=== PATIENT | male | born 1940 | race Caucasian/White ===

== ENCOUNTER 2017-08-04 10:08 | Inpatient (IN) | payer BC, OTHER ==
[~2017-08-04] VITALS: Ht 175.3 cm; Wt 68.0 kg
[2017-08-04 10:24] VITALS: BP_SYST 155
[2017-08-04] MEDS ORDERED: NACL 0.9% 1,000 ML IV ONE (10:41)
[2017-08-04] MEDS ORDERED: CLINDAMYCIN 900 mg/50mL D5W 50 ML IV ONE (10:45)
[2017-08-04] MEDS ORDERED: ASPIRIN 81 MG TAB.CHEW PO ONE (10:45)
[2017-08-04] MEDS ORDERED: NS 1000 ML BAG IV ONE ×2 (10:45→21:00)
[2017-08-04 11:01] LABS: BASOPHILS # (AUTO) 0.1 K/uL (0.0-0.2); MONOCYTES # (AUTO) 0.8 K/uL (0.0-1.0); MONOCYTES % (AUTO) 2.7 % (1.7-9.3)
[2017-08-04 11:08] LABS: BASOPHILS % (AUTO) 0.5 % (0.0-2.0); HEMATOCRIT 31.1 % (36-54); HEMOGLOBIN 10.2 g/dL (14.0-18.0); LYMPHOCYTES # (AUTO) 0.9 K/uL (1.0-5.5); MEAN CORPUSCULAR HEMOGLOBIN 29 pg (27-31); MEAN CORPUSCULAR HGB CONC 33 % (32-36); MEAN CORPUSCULAR VOLUME 88 fL (79.0-98.0); NEUTROPHILS # (AUTO) 27.6 K/uL (1.8-7.7); NEUTROPHILS % (AUTO) 93.8 % (40.0-70.0); PLATELET COUNT (AUTO) 796 K/uL (130-430); RED BLOOD CELL COUNT(AUTO) 3.52 MIL/uL (4.2-6.2); WHITE BLOOD COUNT (AUTO) 29.4 K/uL (4.8-10.8)
[2017-08-04 11:41] LABS: INR 2.4 (0.80-1.20); PROTHROMBIN TIME 24.9 SECS (9.5-12.5)
[2017-08-04 11:48] LABS: ANION GAP 11 (5-15); CALCIUM 9.4 mg/dL (8.4-11.0); CHLORIDE 109 mmol/L (98-107); CREATININE 1.66 mg/dL (0.55-1.30); GLUCOSE 125 mg/dL (70-99); POTASSIUM 4.3 mmol/L (3.5-5.1); SODIUM SERUM 146 mmol/L (136-145); UREA NITROGEN, BLOOD 55 mg/dL (8-21)
[2017-08-04 11:52] LABS: ALANINE AMINOTRANSFERASE 23 U/L (12-78); ALBUMIN 2.1 g/dL (3.4-4.8); AMYLASE 37 U/L (0-100); ASPARTATE AMINOTRANSFERASE 51 U/L (10-37); LIPASE 159 U/L (73-393); TOTAL BILIRUBIN 0.3 mg/dL (0.0-1.0)
[2017-08-04 11:55] LABS: ALCOHOL, BLOOD < 3 mg/dL (<10)
[2017-08-04 12:25] LABS: CREATINE KINASE MB 8.4 ng/mL (0-3.6)
[2017-08-04] MEDS ORDERED: ASPIRIN 81 MG TAB.CHEW ONE (14:11)
[2017-08-04 14:25] VITALS: BP_SYST 159
[2017-08-04 14:25] LABS: BILIRUBIN,URINE NEGATIVE (NEGATIVE); CLARITY/URINE CLEAR (CLEAR); COLOR,URINE YELLOW (YELLOW); GLUCOSE,URINE NEGATIVE (NEGATIVE); KETONES,URINE NEGATIVE (NEGATIVE); LEUKOCYTE ESTERASE ,URINE NEGATIVE (NEGATIVE); NITRITE, URINE NEGATIVE (NEGATIVE); PROTEIN URINE TRACE (NEGATIVE); UROBILINOGEN,URINE 0.2 (0.2-1.0)
[2017-08-04 14:29] LABS: BLOOD, URINE TRACE (NEGATIVE)
[2017-08-04] MEDS ORDERED: cloNIDine HCL 0.1 MG TABLET PO PRN (14:30)
[2017-08-04] MEDS ORDERED: ACETAMINOPHEN 325 MG TABLET PO PRN (14:30)
[2017-08-04] MEDS ORDERED: hydrALAZINE HCL 20 MG/ML VIAL IVP PRN (14:30)
[2017-08-04] MEDS ORDERED: ONDANSETRON HCL 4 MG/2 ML VIAL IVP PRN (14:30)
[2017-08-04] MEDS: VANCOMYCIN HCL 1,000 MG in NS 250 ML IV SCH (15:00)
[2017-08-04 15:04] LABS: BACTERIA,URINE RARE /HPF (None Seen); RBC,URINE 0-3 /HPF (0-3); WBC,URINE 0-3 /HPF (0-3)
[2017-08-04 15:05] LABS: BARBITURATE, URINE NEGATIVE (NEG <=200); BENZODIAZEPINE, URINE NEGATIVE (NEG <=150); CANNABINOID, URINE NEGATIVE (NEG <=50); COCAINE, URINE NEGATIVE (NEG <=150); METHAMPHETAMINES SCREEN,URINE NEGATIVE (NEG <=500); PHENCYCLIDINE SCREEN,URINE NEGATIVE (NEG <=25); UR TRICYCLIC ANTIDEPRESSANTS NEGATIVE (NEG <=300); URINE AMPHETAMINE NEGATIVE (NEG <=500); URINE METHADONE NEGATIVE (NEG <=200); URINE OXYCODONE SCREEN NEGATIVE (NEG <=100); URINE PROPOXYPHENE SCREEN NEGATIVE (NEG <=300)
[2017-08-04 15:06] LABS: OPIATE, URINE POSITIVE (NEG <=100)
[2017-08-04 16:00] VITALS: BP_SYST 159
[2017-08-04] MEDS ORDERED: fentaNYL CITRATE/PF 100 MCG/2 ML AMP IVP ONE ×2 (16:06→21:00)
[2017-08-04] MEDS ORDERED: NS IRRIG SOLN 1000 ML IR ONE ×2 (16:06→21:00)
[2017-08-04] MEDS ORDERED: MIDAZOLAM HCL 5 MG/5 ML VIAL IVP ONE ×2 (16:06→21:00)
[2017-08-04] MEDS ORDERED: MEPERIDINE HCL/PF 100 MG/ML AMP IM ONE (16:06)
[2017-08-04] MEDS ORDERED: KETOROLAC TROMETHAMINE 30 MG VIAL IVP ONE (16:06)
[2017-08-04] MEDS ORDERED: LR 1,000 ML IV.SOLN IV ONE (16:06)
[2017-08-04] MEDS ORDERED: DEXAMETHASONE SOD PHOSPHATE 4 MG/ML VIAL IVP ONE (16:06)
[2017-08-04] MEDS ORDERED: LIDOCAINE 1% 10 MG/ML, 20 ML MDV INJ ONE (16:06)
[2017-08-04] MEDS ORDERED: SEVOFLURANE 15 MIN GAS INH ONE ×2 (16:06→21:00)
[2017-08-04] MEDS ORDERED: PROPOFOL 200MG/ 20ML VIAL (DIPRIVAN) IV ONE ×2 (16:06→21:00)
[2017-08-04] MEDS ORDERED: ONDANSETRON HCL 4 MG/2 ML VIAL IVP ONE (16:06)
[2017-08-04] MEDS: PIPERACILLIN/TAZO 3.375/DEX-IS 50 ML IV SCH ×2 (17:40→17:41)
[2017-08-04] MEDS: BANANA BAG 1 EA, FOLIC ACID 1 MG, THIAMINE HCL 100 MG, MAGNESIUM SULFATE 1 GM, MVI 10 M... IV SCH ×5 (17:41)
[2017-08-04 20:00] VITALS: BP_SYST 111
[2017-08-05 00:21] VITALS: BP_SYST 153
[2017-08-05] MEDS: PIPERACILLIN/TAZO 3.375/DEX-IS 50 ML IV SCH ×4 (00:28→19:02)
[2017-08-05] MEDS: MORPHINE 4 MG/ML INJ. SYRINGE IVP PRN ×2 (00:29→16:05)
[2017-08-05 08:00] VITALS: BP_SYST 155
[2017-08-05 10:25] LABS: RED CELL DISTRIBUTION WIDTH 15.3 % (9.0-15.0)
[2017-08-05 10:28] LABS: HEMATOCRIT 26.4 % (36-54); HEMOGLOBIN 8.6 g/dL (14.0-18.0); MEAN CORPUSCULAR HEMOGLOBIN 29 pg (27-31); MEAN CORPUSCULAR HGB CONC 32 % (32-36); MEAN CORPUSCULAR VOLUME 89 fL (79.0-98.0); RED BLOOD CELL COUNT(AUTO) 2.98 MIL/uL (4.2-6.2); WHITE BLOOD COUNT (AUTO) 22.8 K/uL (4.8-10.8)
[2017-08-05 11:22] LABS: PLATELET COUNT (AUTO) 599 K/uL (130-430)
[2017-08-05 11:26] LABS: BASOPHILS % (MANUAL) 0 % (0-2); EOSINOPHILS % (MANUAL) 1 % (0-7); LYMPHOCYTES % (MANUAL) 4 % (20-46); MONOCYTES % (MANUAL) 8 % (0-11); WBC MORPHOLOGY HYPERSEGMENTED NEUT
[2017-08-05 12:05] VITALS: BP_SYST 148
[2017-08-05] MEDS ORDERED: PHYTONADIONE 10 MG/ML AMP IM ONE (12:15)
[2017-08-05 16:00] VITALS: BP_SYST 144
[2017-08-05] MEDS: VANCOMYCIN HCL 1,000 MG in NS 250 ML IV SCH (16:04)
[2017-08-05] MEDS ORDERED: *CUBICIN 6 MG/KG Q48H/PHARMACY XX PRN (17:00)
[2017-08-05] MEDS: BANANA BAG 1 EA, FOLIC ACID 1 MG, THIAMINE HCL 100 MG, MAGNESIUM SULFATE 1 GM, MVI 10 M... IV SCH ×5 (18:59)
[2017-08-05 20:00] VITALS: BP_SYST 131
[2017-08-05] MEDS ORDERED: DAPTOmycin 400 MG in NS 50 ML IV SCH (20:00)
[2017-08-05] MEDS: LORazepam 2 MG/ML VIAL IVP PRN (22:09)
[2017-08-05 23:12] VITALS: BP_SYST 153
[2017-08-06] VITALS: BP_SYST 153
[2017-08-06] MEDS: PIPERACILLIN/TAZO 3.375/DEX-IS 50 ML IV SCH ×2 (00:35→05:37)
[2017-08-06 08:30] VITALS: BP_SYST 130
[2017-08-06] MEDS: BALSAM PERU/CASTOR OIL 60 GM OINT...G. TP SCH (09:00)
[2017-08-06] MEDS: DAPTOmycin 400 MG in NS 50 ML IV SCH (10:33)
[2017-08-06 10:37] LABS: INR 1.1 (0.80-1.20); PROTHROMBIN TIME 11.2 SECS (9.5-12.5)
[2017-08-06 11:29] VITALS: BP_SYST 144
[2017-08-06 11:42] LABS: BASOPHILS % (AUTO) 0.2 % (0.0-2.0); EOSINOPHILS % (AUTO) 0.2 % (0.0-4.0); LYMPHOCYTES # (AUTO) 0.9 K/uL (1.0-5.5); LYMPHOCYTES % (AUTO) 5.6 % (20.5-51.5); MEAN CORPUSCULAR HEMOGLOBIN 28 pg (27-31); MEAN CORPUSCULAR HGB CONC 32 % (32-36); MEAN CORPUSCULAR VOLUME 88 fL (79.0-98.0); MONOCYTES # (AUTO) 0.9 K/uL (0.0-1.0); MONOCYTES % (AUTO) 5.2 % (1.7-9.3); NEUTROPHILS # (AUTO) 14.7 K/uL (1.8-7.7); NEUTROPHILS % (AUTO) 88.8 % (40.0-70.0); RED BLOOD CELL COUNT(AUTO) 2.44 MIL/uL (4.2-6.2); RED CELL DISTRIBUTION WIDTH 14.9 % (9.0-15.0); WHITE BLOOD COUNT (AUTO) 16.5 K/uL (4.8-10.8)
[2017-08-06 11:44] LABS: HEMOGLOBIN 6.9 g/dL (14.0-18.0)
[2017-08-06 11:45] LABS: HEMATOCRIT 21.5 % (36-54)
[2017-08-06 12:37] LABS: ERYTHROCYTE SEDIMENTATION RATE 71 MM/HR (0-15)
[2017-08-06 15:19] LABS: PLATELET COUNT (AUTO) 535 K/uL (130-430)
[2017-08-06 15:46] VITALS: BP_SYST 148
[2017-08-06] MEDS: BANANA BAG 1 EA, FOLIC ACID 1 MG, THIAMINE HCL 100 MG, MAGNESIUM SULFATE 1 GM, MVI 10 M... IV SCH ×5 (17:45)
[2017-08-06 20:19] VITALS: BP_SYST 113
[2017-08-06] MEDS ORDERED: POLYMYXIN 500,000/BACIT.10,000 UNITS in NS IRR 1 L IR ONE (21:43)
[2017-08-06] MEDS ORDERED: fentaNYL CITRATE/PF 100 MCG/2 ML AMP IVP PRN ×2 (21:45)
[2017-08-06] MEDS ORDERED: ONDANSETRON HCL 4 MG/2 ML VIAL IVP PRN (21:45)
[2017-08-06 21:47] VITALS: BP_SYST 113
[2017-08-07] MEDS: MORPHINE 4 MG/ML INJ. SYRINGE IVP PRN ×4 (05:41→22:32)
[2017-08-07 06:04] LABS: BASOPHILS % (AUTO) 0.3 % (0.0-2.0); EOSINOPHILS % (AUTO) 0.3 % (0.0-4.0); HEMATOCRIT 22.3 % (36-54); HEMOGLOBIN 7.4 g/dL (14.0-18.0); LYMPHOCYTES % (AUTO) 7.2 % (20.5-51.5); MEAN CORPUSCULAR HEMOGLOBIN 29 pg (27-31); MEAN CORPUSCULAR HGB CONC 33 % (32-36); MEAN CORPUSCULAR VOLUME 87 fL (79.0-98.0); MONOCYTES # (AUTO) 0.8 K/uL (0.0-1.0); MONOCYTES % (AUTO) 5.6 % (1.7-9.3); NEUTROPHILS # (AUTO) 11.9 K/uL (1.8-7.7); NEUTROPHILS % (AUTO) 86.6 % (40.0-70.0); PLATELET COUNT (AUTO) 520 K/uL (130-430); RED BLOOD CELL COUNT(AUTO) 2.58 MIL/uL (4.2-6.2); WHITE BLOOD COUNT (AUTO) 13.7 K/uL (4.8-10.8)
[2017-08-07 08:20] VITALS: BP_SYST 143
[2017-08-07] MEDS: ENOXAPARIN SODIUM 40 MG/0.4 ML SYRINGE SUBCUT SCH (09:34)
[2017-08-07 09:48] VITALS: BP_SYST 147
[2017-08-07 09:49] LABS: ANION GAP 9 (5-15); CALCIUM 8.3 mg/dL (8.4-11.0); CHLORIDE 108 mmol/L (98-107); CREATININE 1.22 mg/dL (0.55-1.30); GLUCOSE 128 mg/dL (70-99); POTASSIUM 3.3 mmol/L (3.5-5.1); SODIUM SERUM 141 mmol/L (136-145); UREA NITROGEN, BLOOD 26 mg/dL (8-21)
[2017-08-07] MEDS: BALSAM PERU/CASTOR OIL 60 GM OINT...G. TP SCH (09:51)
[2017-08-07 09:55] LABS: ALANINE AMINOTRANSFERASE 20 U/L (12-78); ALBUMIN 1.5 g/dL (3.4-4.8); ASPARTATE AMINOTRANSFERASE 31 U/L (10-37); TOTAL BILIRUBIN 0.4 mg/dL (0.0-1.0)
[2017-08-07 12:10] VITALS: BP_SYST 148
[2017-08-07] MEDS ORDERED: POTASSIUM CHLORIDE 20 MEQ TAB.PRT.SR PO ONE (13:45)
[2017-08-07 16:00] VITALS: BP_SYST 143
[2017-08-07] MEDS: BANANA BAG 1 EA, FOLIC ACID 1 MG, THIAMINE HCL 100 MG, MAGNESIUM SULFATE 1 GM, MVI 10 M... IV SCH ×5 (16:42)
[2017-08-07] MEDS ORDERED: CIPROFLOXACIN LACT 400 MG/D5W 200 ML IV ONE (21:12)
[2017-08-07] MEDS: CIPROFLOXACIN LACT 200 MG/D5W 100 ML IV SCH (21:50)
[2017-08-08 02:02] VITALS: BP_SYST 138
[2017-08-08 04:07] VITALS: BP_SYST 126
[2017-08-08] MEDS: MORPHINE 4 MG/ML INJ. SYRINGE IVP PRN ×2 (05:51→10:17)
[2017-08-08 08:00] VITALS: BP_SYST 150
[2017-08-08] MEDS: ENOXAPARIN SODIUM 40 MG/0.4 ML SYRINGE SUBCUT SCH (09:00)
[2017-08-08] MEDS: BALSAM PERU/CASTOR OIL 60 GM OINT...G. TP SCH (10:18)
[2017-08-08] MEDS: CIPROFLOXACIN LACT 200 MG/D5W 100 ML IV SCH ×2 (10:18→20:26)
[2017-08-08] MEDS: DAPTOmycin 400 MG in NS 50 ML IV SCH (11:16)
[2017-08-08 12:21] VITALS: BP_SYST 146
[2017-08-08] MEDS ORDERED: MEPERIDINE HCL/PF 50 MG/ML AMP ONE (16:08)
[2017-08-08] MEDS ORDERED: ONDANSETRON HCL 4 MG/2 ML VIAL IVP ONE (17:15)
[2017-08-08] MEDS ORDERED: NALOXONE HCL 0.4 MG/ML AMP (NARCAN) IVP ONE (17:15)
[2017-08-08] MEDS ORDERED: fentaNYL CITRATE/PF 100 MCG/2 ML AMP IVP PRN (17:15)
[2017-08-08] MEDS ORDERED: HYDROmorphone 1 MG INJ. 1 MG/ML AMPUL IVP PRN (17:15)
[2017-08-08] MEDS ORDERED: KETOROLAC TROMETHAMINE 30 MG VIAL IVP ONE (17:15)
[2017-08-08] MEDS ORDERED: MEPERIDINE HCL/PF 25 MG/ML DISP.SYRIN IVP PRN (17:15)
[2017-08-08] MEDS ORDERED: MIDAZOLAM HCL 5 MG/5 ML VIAL IVP PRN (17:15)
[2017-08-08] MEDS: BANANA BAG 1 EA, FOLIC ACID 1 MG, THIAMINE HCL 100 MG, MAGNESIUM SULFATE 1 GM, MVI 10 M... IV SCH ×5 (17:57)
[2017-08-08 20:30] VITALS: BP_SYST 125
[2017-08-08] MEDS: LORazepam 2 MG/ML VIAL IVP PRN (21:01)
[2017-08-09 00:06] VITALS: BP_SYST 113
[2017-08-09 04:29] VITALS: BP_SYST 113
[2017-08-09 08:13] VITALS: BP_SYST 142
[2017-08-09] MEDS: ENOXAPARIN SODIUM 40 MG/0.4 ML SYRINGE SUBCUT SCH (09:04)
[2017-08-09] MEDS: CIPROFLOXACIN LACT 200 MG/D5W 100 ML IV SCH ×2 (09:04→20:40)
[2017-08-09] MEDS: BALSAM PERU/CASTOR OIL 60 GM OINT...G. TP SCH (09:05)
[2017-08-09] MEDS: MORPHINE 4 MG/ML INJ. SYRINGE IVP PRN (10:31)
[2017-08-09 12:30] VITALS: BP_SYST 124
[2017-08-09 12:56] LABS: HEMATOCRIT 25.2 % (36-54); HEMOGLOBIN 7.7 g/dL (14.0-18.0); LYMPHOCYTES # (AUTO) 0.5 K/uL (1.0-5.5); LYMPHOCYTES % (AUTO) 5.4 % (20.5-51.5); MEAN CORPUSCULAR HEMOGLOBIN 27 pg (27-31); MEAN CORPUSCULAR HGB CONC 31 % (32-36); MEAN CORPUSCULAR VOLUME 89 fL (79.0-98.0); MONOCYTES # (AUTO) 0.4 K/uL (0.0-1.0); MONOCYTES % (AUTO) 4.1 % (1.7-9.3); NEUTROPHILS # (AUTO) 9.2 K/uL (1.8-7.7); NEUTROPHILS % (AUTO) 90.5 % (40.0-70.0); PLATELET COUNT (AUTO) 663 K/uL (130-430); RED BLOOD CELL COUNT(AUTO) 2.84 MIL/uL (4.2-6.2); RED CELL DISTRIBUTION WIDTH 15.2 % (9.0-15.0); WHITE BLOOD COUNT (AUTO) 10.1 K/uL (4.8-10.8)
[2017-08-09 13:11] LABS: ANION GAP 9 (5-15); CALCIUM 8.2 mg/dL (8.4-11.0); CHLORIDE 104 mmol/L (98-107); CREATININE 1.24 mg/dL (0.55-1.30); GLUCOSE 147 mg/dL (70-99); POTASSIUM 4.1 mmol/L (3.5-5.1); SODIUM SERUM 137 mmol/L (136-145); UREA NITROGEN, BLOOD 26 mg/dL (8-21)
[2017-08-09 13:16] LABS: ALANINE AMINOTRANSFERASE 14 U/L (12-78); ALBUMIN 1.6 g/dL (3.4-4.8); ASPARTATE AMINOTRANSFERASE 19 U/L (10-37)
[2017-08-09 13:28] LABS: TOTAL BILIRUBIN 0.2 mg/dL (0.0-1.0)
[2017-08-09 16:00] VITALS: BP_SYST 143
[2017-08-09] MEDS: BANANA BAG 1 EA, FOLIC ACID 1 MG, THIAMINE HCL 100 MG, MAGNESIUM SULFATE 1 GM, MVI 10 M... IV SCH ×5 (17:19)
[2017-08-09] MEDS: LORazepam 2 MG/ML VIAL IVP PRN (20:40)
[2017-08-10 00:11] VITALS: BP_SYST 146
[2017-08-10] MEDS: MORPHINE 4 MG/ML INJ. SYRINGE IVP PRN ×2 (02:04→06:39)
[2017-08-10] MEDS: ENOXAPARIN SODIUM 40 MG/0.4 ML SYRINGE SUBCUT SCH (09:27)
[2017-08-10] MEDS: CIPROFLOXACIN LACT 200 MG/D5W 100 ML IV SCH (09:30)
[2017-08-10] MEDS: BALSAM PERU/CASTOR OIL 60 GM OINT...G. TP SCH (09:31)
[2017-08-10 09:46] VITALS: BP_SYST 135
[2017-08-10] MEDS: DAPTOmycin 400 MG in NS 50 ML IV SCH (10:49)
[2017-08-10 12:04] VITALS: BP_SYST 137
[2017-08-10 13:43] LABS: BASOPHILS # (AUTO) 0.1 K/uL (0.0-0.2); EOSINOPHILS # (AUTO) 0.1 K/uL (0.0-0.4); HEMOGLOBIN 7.6 g/dL (14.0-18.0); LYMPHOCYTES # (AUTO) 1.1 K/uL (1.0-5.5); MEAN CORPUSCULAR HEMOGLOBIN 29 pg (27-31); MEAN CORPUSCULAR HGB CONC 33 % (32-36); MEAN CORPUSCULAR VOLUME 89 fL (79.0-98.0); MONOCYTES # (AUTO) 0.7 K/uL (0.0-1.0); MONOCYTES % (AUTO) 5.4 % (1.7-9.3); NEUTROPHILS # (AUTO) 11.7 K/uL (1.8-7.7); NEUTROPHILS % (AUTO) 84.6 % (40.0-70.0); PLATELET COUNT (AUTO) 611 K/uL (130-430); RED CELL DISTRIBUTION WIDTH 15.2 % (9.0-15.0); WHITE BLOOD COUNT (AUTO) 13.7 K/uL (4.8-10.8)
[2017-08-10] MEDS ORDERED: VANC1FRO2 IV (14:25)
[2017-08-10] MEDS ORDERED: MORP2SYR IVP (14:26)
[2017-08-10] MEDS ORDERED: PRO40 PO (14:27)
[2017-08-10 16:00] VITALS: BP_SYST 143
[2017-08-10 17:41] VITALS: BP_SYST 137
== END 2017-08-10 18:07 | DRG 853 ==
LOC: SED 10:08 → SMU 12:52
PROVIDERS: ADMIT Internal Medicine Hospice and Palliative Medicine; ATTEND Internal Medicine Hospice and Palliative Medicine
PROC: 30233N1 Transfusion of Nonautologous Red Blood Cells into Peripheral Vein, Percutaneous Approach (ICD-10-PCS; 2017-08-06)
PROC: 0JBQ0ZZ Excision of Right Foot Subcutaneous Tissue and Fascia, Open Approach (ICD-10-PCS; principal; 2017-08-08 15:30)
DX: A41.2 Sepsis due to unspecified staphylococcus (principal); E43 Unspecified severe protein-calorie malnutrition; L03.115 Cellulitis of right lower limb; L89.612 Pressure ulcer of right heel, stage 2; M00.9 Pyogenic arthritis, unspecified; W19.XXXA Unspecified fall, initial encounter; D64.9 Anemia, unspecified; F10.20 Alcohol dependence, uncomplicated; I10 Essential (primary) hypertension; F03.90 Unspecified dementia, unspecified severity, without behavioral disturbance, psychotic disturbance, mood disturbance, and anxiety; K70.30 Alcoholic cirrhosis of liver without ascites; Z96.651 Presence of right artificial knee joint; Y93.89 Activity, other specified; Y92.89 Other specified places as the place of occurrence of the external cause; Y99.8 Other external cause status; Z68.22 Body mass index [BMI] 22.0-22.9, adult; Z88.0 Allergy status to penicillin
CPT/HCPCS: 36415; 70450-TC; 71045; 73564; 80053; 80307; 81000-TC; 82150-TC; 82272; 82550-TC; 82553-TC; 83605; 83690-TC; 84484; 85007; 85025; 85027; 85610-TC; 85651-TC; 85730-TC; 86886; 86900; 86901; 86920; 87040-TC; 87070-TC; 87075-TC; 87081; 87186-TC; 88304; 93005; 93922; 97110-GP; 97116-GP; 97530-GP; 99291; G0482; J0744; J0878; J1100; J1650; J1885; J2001; J2060; J2175; J2250; J2270; J2405; J2543; J2704; J3010; J3370; J3411; J3430; J3475; J3490; J7030; J7050; J7120; P9021